=== PATIENT | male | born 1960 | race Two or more races ===

== ENCOUNTER 2024-11-30 05:24 | Day surgery (SDC) | payer OTHER ==
[2024-11-18 10:38] VITALS: BP 136/76
[~2024-11-30] VITALS: Ht 177.8 cm; Wt 88.5 kg
[~2024-11-30 05:24] MED LIST: LIPITOR20 MG; NEXIUM 24HR20 M1; PROSCAR5 MG PO; SYNTHROID88 MCG PO; TAMS0.4C PO; VITAMIN D310 MCG/1 M
[2024-11-30] MEDS ORDERED: METRONIDAZOLE/SODIUM CHLORIDE 500 MG/100 ML PIGGYBACK IV ONE (06:10)
[2024-11-30] MEDS ORDERED: CEFTRIAXONE SODIUM 2,000 MG VIAL ONE (06:10)
[2024-11-30] MEDS ORDERED: POVIDONE-IODINE 118 ML BOTT TOP ONE (07:02)
[2024-11-30] MEDS ORDERED: DIBUCAINE 30 GM TUBE ONE (07:02)
[2024-11-30] MEDS ORDERED: HEMOSTATIC MATRIX 1 KIT KIT TOP ONE (07:02)
[2024-11-30] MEDS ORDERED: LIDOCAINE HCL 1%/EPINEPHRINE 20ML VIAL IJ ONE (07:03)
[2024-11-30] MEDS ORDERED: BUPIVACAINE HCL/MPF 0.5% 30ML VIAL ONE (07:03)
[2024-11-30] MEDS ORDERED: PERCOCET 5-3251 EACH PO (08:30)
[2024-11-30] MEDS ORDERED: RECTICARE30 GM TOP (08:31)
== END 2024-11-30 12:40 | disposition home or self-care (01) ==
LOC: CIR.AMB 05:24
PROVIDERS: ATTEND Surgery
DX: K64.1 Second degree hemorrhoids (principal); K64.3 Fourth degree hemorrhoids